=== PATIENT | female | born 1975 | race Caucasian/White ===

== ENCOUNTER 2019-03-19 09:39 | Outpatient (CLI) | payer OTHER ==
[~2019-03-19 09:39] MED LIST: ALBU8.5H8 INH; GUAI200T37 PO; LACT1CAP24 PO; LEVO750T26 PO; OSEL75CA26 PO; OXYC-307 PO
[2019-03-19] MEDS ORDERED: LORA10TA75 PO (10:53)
== END 2019-03-19 23:59 | disposition home or self-care (01) ==
LOC: STAR 09:39
PROVIDERS: ATTEND Orthopaedic Surgery Foot and Ankle Surgery
DX: Z02.9 Encounter for administrative examinations, unspecified (principal)